=== PATIENT | female | born 1960 | race Two or more races ===

== ENCOUNTER 2019-08-15 08:38 | Emergency (ER) | payer SELFPAY ==
[~2019-08-15] VITALS: Ht 152.4 cm; Wt 47.6 kg
--- NOTE | 2019-08-15 08:45 | NUR ---
[id number] FRM HOME, BLEEDING FRM DIALYSIS ACCESS SINCE THURSDAY. PATIENT A/OX4, BREATHING EVEN AND UNLABORED, NO SOB NOTED, HD CATH ON RCW STILL ACTIVELY BLEEDING. DR. SOTELO AT BEDSIDE FOR EVAL.
[2019-08-15 09:05] LABS: BASOPHILS # (AUTO) 0.1 /CMM (0.0-0.2); EOSINOPHILS % (AUTO) 0.1 % (0.0-6.0); HEMATOCRIT 26 % (33-45); HEMOGLOBIN 8.5 g/dL (11.5-14.8); LYMPHOCYTES # (AUTO) 0.8 /CMM (0.8-4.8); MEAN CORPUSCULAR HGB CONC 33 g/dl (31.0-36.0); MEAN CORPUSCULAR VOLUME 94 fL (82-100); MONOCYTES # (AUTO) 0.6 /CMM (0.1-1.30); MONOCYTES % (AUTO) 8.4 % (2.0-12.0); NEUTROPHILS # (AUTO) 5.7 /CMM (1.8-8.9); NEUTROPHILS % (AUTO) 79.5 % (43.0-81.0); PLATELET COUNT (AUTO) 143 /CMM (150-450); RED BLOOD CELL COUNT(AUTO) 2.74 MIL/uL (4.0-5.2); WHITE BLOOD COUNT (AUTO) 7.1 K/uL (4.3-11.0)
[2019-08-15 09:21] LABS: CALCIUM, SERUM 8.5 mg/dL (8.5-10.1); POTASSIUM 4.3 mmol/L (3.5-5.1)
[2019-08-15] MEDS ORDERED: QUET25TA PO (11:15)
[2019-08-15] MEDS ORDERED: CHOL500052 PO (11:15)
[2019-08-15] MEDS ORDERED: DOCU-141 PO (11:15)
[2019-08-15] MEDS ORDERED: PANT40TA4 PO (11:15)
[2019-08-15] MEDS ORDERED: PRED20TA PO (11:15)
[2019-08-15] MEDS ORDERED: FOLI5VIA2 PO (11:15)
[2019-08-15] MEDS ORDERED: AMLO5TAB4 PO (11:15)
[2019-08-15] MEDS ORDERED: FOLI0.8T2 PO (11:15)
[2019-08-15] MEDS ORDERED: CARV12.5 PO (11:15)
[2019-08-15] MEDS ORDERED: ATOV750O2 PO (11:15)
[2019-08-15] MEDS ORDERED: HYDR200T81 PO (11:15)
--- NOTE | 2019-08-15 11:33 | NUR ---
FAMILY REQUESTED TO BRING PATIENT TO [facility], WHERE ALL HER DOCTORS ARE. HD CATHETER DRESSING RE-INFORCED, MINIMAL BLEEDING NOTED AT THIS TIME. IV removed. Catheter intact and site benign. Pressure and 4x4 applied to site. No bleeding noted.Patient discharged to home in stable condition. Written and verbal after care instructions given to daughter. Patient and daughter verbalizes understanding of instruction.
[2019-08-15 11:34] VITALS: BP 138/67
== END 2019-08-15 11:34 | disposition home or self-care (01) ==
LOC: ER 08:43
DX: T82.838A Hemorrhage due to vascular prosthetic devices, implants and grafts, initial encounter (principal); I12.0 Hypertensive chronic kidney disease with stage 5 chronic kidney disease or end stage renal disease; E11.22 Type 2 diabetes mellitus with diabetic chronic kidney disease; N18.6 End stage renal disease; Z99.2 Dependence on renal dialysis
CPT/HCPCS: 36415; 71045-TC; 80048-TC; 85025-TC; 85730-TC; 86850-TC; 87081-TC